=== PATIENT | female | born 1955 | race Caucasian/White ===

== ENCOUNTER 2017-06-17 18:17 | Observation (INO) | payer OTHER ==
[~2017-06-17] VITALS: Ht 157.5 cm; Wt 49.0 kg
[2017-06-17 18:26] VITALS: BP 137/81; PULSE 94; RESP 16; TEMP 98.1; O2SAT 99
[2017-06-17] MEDS ORDERED: AMBI10TA PO (18:43)
[2017-06-17] MEDS ORDERED: AMPH1TAB47 PO (18:43)
[2017-06-17] MEDS ORDERED: MIRT45TA PO (18:43)
[2017-06-17] MEDS ORDERED: CLOR3.755 PO (18:43)
[2017-06-17] MEDS ORDERED: SODIUM CHLORIDE 0.9% FLUSH 10 ML FLUSH IVF PRN (18:45)
[2017-06-17] MEDS ORDERED: ASPIRIN 81 MG CHEW TAB PO ONE (18:45)
--- NOTE | 2017-06-17 18:51 | PD ---
HPI Chief Complaint: Musculoskeletal Complaint Time Seen by Provider: 18:30 Travel History International Travel<30 days: No Contact w/Intl Traveler<30days: No Traveled to known affect area: No History of Present Illness HPI 62-year-old female with history of fibromyalgia, anxiety, previous [place], presents to the emergency department today for evaluation of a pain in her left shoulder blade that wraps around to the front that has been occurring intermittently over the last 4-5 days. She states it first came on while she was lying down doing nothing. It causes her to be short of breath and sensation of lightheadedness. She states since then she does not have to be doing anything or she can be something when it happened. She has no nausea or vomiting. No diaphoresis. She just feels lightheaded and short of breath. She does not recall any injury. She not recall any alleviating or exacerbating factors. She has no other symptoms to report. PFSH Past Medical History Anxiety: Yes Depression: Yes Diminished Hearing: No Fibromyalgia: Yes Tetanus Vaccination: < 5 Years Influenza Vaccination: No ?: Not Past Surgical History Appendectomy: Yes (WITH REMOVAL OF OVARY AND FALLOPIAN TUBE) Social History Alcohol Use: No Tobacco Use: Yes (5 CIGS DAY) Substance Use: No Allergies-Medications (Allergen,Severity, Reaction): Coded Allergies: No Known Allergies (Unverified , 06/17/17) Reported Meds & Prescriptions Reported Meds & Active Scripts Active Reported Ambien (Zolpidem Tartrate) 10 Mg Tab 10 Mg PO HS PRN Mirtazapine 45 Mg Tab 45 Mg PO HS Amphetamine-Dextroamphetamine 15 Mg Tab 15 Mg PO BID Avoid late evening doses. Space doses at least 4 to 6 hours if more than once/day dosing. Clorazepate (Clorazepate Dipotassium) 3.75 Mg Tab 3.75 Mg PO TID PRN Review of Systems Except as stated in HPI: all other systems reviewed are Neg Physical Exam Narrative GENERAL: Well-nourished female patient, with bizarre affect, but in no acute distress. SKIN: Focused skin assessment warm/dry. HEAD: Atraumatic. Normocephalic. EYES: Pupils equal and round. No scleral icterus. No injection or drainage. ENT: No nasal bleeding or discharge. Mucous membranes pink and moist. NECK: Trachea midline. No JVD. CARDIOVASCULAR: Regular rate and rhythm. No murmur appreciated. RESPIRATORY: No accessory muscle use. Clear to auscultation. Breath sounds equal bilaterally. GASTROINTESTINAL: Abdomen soft, non-tender, nondistended. Hepatic and splenic margins not palpable. MUSCULOSKELETAL: No obvious deformities. No clubbing. No cyanosis. No edema. He has no limitation in range of motion of the left shoulder. No crepitus to palpation. No tenderness to palpation. Equal english composition instructor strength bilateral upper extremities. NEUROLOGICAL: Awake and alert. No obvious cranial nerve deficits. Motor grossly within normal limits. Normal speech. PSYCHIATRIC: Appropriate mood and affect; insight and judgment normal. Data Data Last Documented VS Vital Signs Date Time Temp Pulse Resp B/P (MAP) Pulse Ox O2 Delivery O2 Flow Rate FiO2 06/17/17 19:11 140/85 (103) 135/82 (99) 06/17/17 19:09 80 18 99 06/17/17 19:09 Nasal Cannula 06/17/17 18:26 98.1 Orders Orders Electrocardiogram (06/17/17 18:35) Basic Metabolic Panel (Bmp) (06/17/17 18:35) Ckmb (Isoenzyme) Profile (06/17/17 18:35) Complete Blood Count With Diff (06/17/17 18:35) Magnesium (Mg) (06/17/17 18:35) Prothrombin Time / Inr (Pt) (06/17/17 18:35) Act Partial Throm Time (Ptt) (06/17/17 18:35) Troponin I (06/17/17 18:35) Lipase (06/17/17 18:35) Chest, Single Ap (06/17/17 18:35) Ecg Monitoring (06/17/17 18:35) Bilateral Bp Monitoring (06/17/17 18:35) Iv Access Insert/Monitor (06/17/17 18:35) Oximetry (06/17/17 18:35) Oxygen Administration (06/17/17 18:35) Aspirin Chew (Aspirin Chew) (06/17/17 18:45) Sodium Chloride 0.9% Flush (Ns Flush) (06/17/17 18:45) CKMB (06/17/17 18:48) CKMB% (06/17/17 18:48) Potassium Chloride (Kcl) (06/17/17 19:45) Sodium Chlor 0.9% 1000 Ml Inj (Ns 1000 M (06/17/17 19:45) Labs Laboratory Tests Test 06/17/17 18:48 White Blood Count 9.0 TH/MM3 Red Blood Count 4.26 MIL/MM3 Hemoglobin 12.8 GM/DL Hematocrit 38.4 % Mean Corpuscular Volume 90.1 FL Mean Corpuscular Hemoglobin 30.0 PG Mean Corpuscular Hemoglobin Concent 33.3 % Red Cell Distribution Width 12.9 % Platelet Count 222 TH/MM3 Mean Platelet Volume 8.8 FL Neutrophils (%) (Auto) 46.4 % Lymphocytes (%) (Auto) 45.1 % Monocytes (%) (Auto) 6.8 % Eosinophils (%) (Auto) 1.2 % Basophils (%) (Auto) 0.5 % Neutrophils # (Auto) 4.3 TH/MM3 Lymphocytes # (Auto) 4.0 TH/MM3 Monocytes # (Auto) 0.6 TH/MM3 Eosinophils # (Auto) 0.1 TH/MM3 Basophils # (Auto) 0.0 TH/MM3 CBC Comment DIFF FINAL Differential Comment Prothrombin Time 11.2 SEC Prothromb Time International Ratio 1.0 RATIO Activated Partial Thromboplast Time 29.0 SEC Blood Urea Nitrogen 17 MG/DL Creatinine 0.75 MG/DL Random Glucose 81 MG/DL Calcium Level 8.8 MG/DL Magnesium Level 2.3 MG/DL Sodium Level 140 MEQ/L Potassium Level 3.3 MEQ/L Chloride Level 108 MEQ/L Carbon Dioxide Level 25.9 MEQ/L Anion Gap 6 MEQ/L Estimat Glomerular Filtration Rate 79 ML/MIN Total Creatine Kinase 439 U/L Creatine Kinase MB 2.9 NG/ML Creatine Kinase MB % 0.7 % Troponin I LESS THAN 0.02 NG/ML Lipase 122 U/L MDM Medical Decision Making Medical Screen Exam Complete: Yes Emergency Medical Condition: Yes Medical Record Reviewed: Yes Differential Diagnosis ACS versus pleuritic pain versus atypical chest pain versus musculoskeletal pain Narrative Course 62-year-old female presents to emergency department for evaluation of a left shoulder pain. With no new injury and patient describes associated symptoms, testing workup is initiated. This is essentially negative. I discussed the patient my attending who agrees it is in her best interest to be observed in the chest pain center. A call has been placed to [facility] for this observation admission. Plan is discussed with patient who is in agreement with this plan of care. Diagnosis Primary Impression: Atypical chest pain Admitting Information Admitting Physician Requests: Observation Condition: Stable Magaly Castano Jun 17, 2017 18:51
[2017-06-17 19:01] LABS: AUTOMATED NEUTROPHIL # 4.3 TH/MM3 (1.8-7.7); BASOPHIL % 0.5 % (0.0-2.0); EOSINOPHIL # 0.1 TH/MM3 (0-0.4); EOSINOPHIL % 1.2 % (0.0-4.0); HEMATOCRIT 38.4 % (35.0-46.0); HEMO FLAGS DIFF FINAL; LYMPH % 45.1 % (9.0-44.0); MEAN CELL VOLUME 90.1 FL (80.0-100.0); MEAN CORPUSCULAR HGB CONC 33.3 % (32.0-36.0); MONO % 6.8 % (0.0-8.0); NEUT % 46.4 % (16.0-70.0); PLATELET COUNT 222 TH/MM3 (150-450); RED BLOOD COUNT 4.26 MIL/MM3 (4.00-5.30); RED CELL DISTRIBUTION WIDTH 12.9 % (11.6-17.2)
[2017-06-17 19:09] VITALS: BP 142/85; PULSE 80; RESP 18; O2SAT 98; O2SAT 99
[2017-06-17 19:11] VITALS: BP_SYST 135; BP_SYST 140; BP_DIAS 82; BP_DIAS 85
[2017-06-17 19:19] LABS: CHLORIDE 108 MEQ/L (98-107); POTASSIUM 3.3 MEQ/L (3.5-5.1); SODIUM (NA) 140 MEQ/L (136-145)
[2017-06-17 19:22] LABS: ANION GAP 6 MEQ/L (5-15); BICARBONATE 25.9 MEQ/L (21.0-32.0); BLOOD UREA NITROGEN 17 MG/DL (7-18); MAGNESIUM 2.3 MG/DL (1.5-2.5)
--- NOTE | 2017-06-17 19:23 | RADRPT ---
EXAM DATE/TIME: 06/17/2017 18:54 [facility] COMPARISON: No previous studies available for comparison. INDICATIONS : Left posterior upper chest pain MEDICAL HISTORY : Fungal lung infection SURGICAL HISTORY : None. ENCOUNTER: Initial ACUITY: 4 - 6 days PAIN SCORE: 9/10 LOCATION: Bilateral chest FINDINGS: A single view of the chest demonstrates the lungs to be symmetrically aerated without evidence of mas s, infiltrate or effusion. The cardiomediastinal contours are unremarkable. Mild to moderate S-shaped thoracolumbar scoliosis noted. CONCLUSION: No evidence of acute cardiopulmonary disease. Scoliosis. Octavio Gutiérrez MD on June 17, 2017 at 19:20 Board Certified Radiologist. This report was verified electronically.
[2017-06-17 19:24] LABS: PROTHROMBIN TIME - PATIENT 11.2 SEC (9.8-11.6)
[2017-06-17 19:25] LABS: GLOMERULAR FILTRATION RATE 79 ML/MIN (>89)
[2017-06-17 19:29] LABS: CREATINE KINASE 439 U/L (26-192)
[2017-06-17 19:41] LABS: CKMB 2.9 NG/ML (0.5-3.6)
[2017-06-17] MEDS ORDERED: POTASSIUM CHLORIDE 10 MEQ CONTROLLED RELEASE TAB PO ONE (19:45)
[2017-06-17] MEDS ORDERED: SODIUM CHLOR 0.9% 1000 ML INJ 1,000 ML IV ONE (19:45)
[2017-06-17 19:52] VITALS: BP 113/68; PULSE 83; RESP 18; TEMP 98.2; O2SAT 97
[2017-06-17] MEDS ORDERED: ACETAMINOPHEN 500 MG CPLT PO PRN (20:15)
[2017-06-17] MEDS ORDERED: SODIUM CHLORIDE 0.9% FLUSH 10 ML FLUSH IV FLUSH PRN (20:15)
[2017-06-17] MEDS ORDERED: ONDANSETRON HCL 4 MG/2 ML VIAL IV PUSH PRN (20:15)
[2017-06-17] MEDS ORDERED: NITROGLYCERIN 0.4 MG SL 25 TABS/BTL SL PRN (20:15)
[2017-06-17] MEDS ORDERED: SODIUM CHLORIDE 0.9% FLUSH 10 ML FLUSH IV FLUSH SCH (21:00)
--- NOTE | 2017-06-18 18:47 | EKG ---
Date Performed: 06/17/2017 Time Performed: 19:10:49 PTAGE: 62 years EKG: Sinus rhythm NORMAL ECG NO PREVIOUS TRACING DOCTOR: Jojo Davies Interpretating Date/Time 06/18/2017 18:46:37
== END 2017-06-17 22:00 | disposition left against medical advice (07) ==
LOC: PHED 18:17 → PHEDA 20:03 → PH3B 21:15
PROVIDERS: ADMIT Hospitalist; ATTEND Hospitalist
DX: R07.89 Other chest pain (principal); M25.512 Pain in left shoulder; R06.02 Shortness of breath; R42 Dizziness and giddiness; M79.7 Fibromyalgia; M41.9 Scoliosis, unspecified; I25.2 Old myocardial infarction; F41.9 Anxiety disorder, unspecified; F32.9 Major depressive disorder, single episode, unspecified; F17.210 Nicotine dependence, cigarettes, uncomplicated; Z79.899 Other long term (current) drug therapy
CPT/HCPCS: 71010; 80048; 82550; 82552; 83690; 83735; 84484; 85025; 85610; 85730; 93005; 96360; 99285; G0378; J7030

== ENCOUNTER 2017-06-29 12:54 | Emergency (ER) | payer OTHER ==
[~2017-06-29 12:54] MED LIST: AMBI10TA PO; AMPH1TAB47 PO; CLOR3.755 PO; MIRT45TA PO
[2017-06-29 13:05] VITALS: BP 135/92; PULSE 97; RESP 18; TEMP 98; O2SAT 97
[2017-06-29 15:46] LABS: AUTOMATED NEUTROPHIL # 4.8 TH/MM3 (1.8-7.7); BASOPHIL % 0.5 % (0.0-2.0); EOSINOPHIL # 0.1 TH/MM3 (0-0.4); EOSINOPHIL % 0.7 % (0.0-4.0); HEMATOCRIT 41.1 % (35.0-46.0); HEMOGLOBIN 13.6 GM/DL (11.6-15.3); LYMPHOCYTE # 2.3 TH/MM3 (1.0-4.8); MEAN CELL VOLUME 91.2 FL (80.0-100.0); MEAN CORPUSCULAR HEMOGLOBIN 30.3 PG (27.0-34.0); MEAN CORPUSCULAR HGB CONC 33.2 % (32.0-36.0); MEAN PLATELET VOLUME 10.1 FL (7.0-11.0); MONO % 6.8 % (0.0-8.0); MONOCYTE # 0.5 TH/MM3 (0-0.9); PLATELET COUNT 244 TH/MM3 (150-450); RED BLOOD COUNT 4.51 MIL/MM3 (4.00-5.30); RED CELL DISTRIBUTION WIDTH 14.3 % (11.6-17.2); WHITE BLOOD COUNT 7.7 TH/MM3 (4.0-11.0)
[2017-06-29 16:02] LABS: AST (GOT) 20 U/L (15-37); BICARBONATE 27.1 MEQ/L (21.0-32.0); BLOOD UREA NITROGEN 14 MG/DL (7-18); CALCIUM 9.6 MG/DL (8.5-10.1); CHLORIDE 108 MEQ/L (98-107); CREATININE 0.88 MG/DL (0.50-1.00); GLOMERULAR FILTRATION RATE 66 ML/MIN (>89); GLUCOSE,RANDOM 102 MG/DL (74-106); SODIUM (NA) 140 MEQ/L (136-145)
[2017-06-29 16:05] LABS: ALKALINE PHOSPHATASE 89 U/L (45-117); ALT (GPT) 19 U/L (10-53); TOTAL BILIRUBIN ADULT 0.2 MG/DL (0.2-1.0)
[2017-06-29 16:07] LABS: BILIRUBIN, URINE NEG (NEG); BLOOD, URINE NEG (NEG); GLUCOSE,URINE NEG (NEG); HYALINE CAST, URINE 9 /lpf (RARE); KETONE, URINE NEG (NEG); MUCUS URINE MANY /lpf (OCC); NITRITE,URINE NEG (NEG); PH, URINE 5.5 (5.0-8.5); SQUAMOUS EPITHELIAL CELL URINE <1 /hpf (0-5); URINE COLOR YELLOW (YELLW/STRAW); URINE LEUKOCYTE ESTERASE NEG (NEG)
--- NOTE | 2017-06-29 16:26 | PD ---
HPI Chief Complaint: Psychiatric Symptoms Time Seen by Provider: 14:40 Travel History International Travel<30 days: No Contact w/Intl Traveler<30days: No History of Present Illness HPI 62-year-old female presents to emergency department as a Khan act was suicidal ideations. Patient states that she was on the phone with the bank and became frustrated and said "I'm just going to go myself". The police department and then went to her house and Khan acted her with suicidal ideations. Patient denies any suicidal or homicidal ideations. Denies illicit drug use. Denies hallucinations. Denies fever, chills, chest pain, shortness of breath. States she has a history of anxiety and depression takes her medication as recommended. [facility] Past Medical History Anxiety: Yes Depression: Yes Diminished Hearing: No Fibromyalgia: Yes Integumentary: Yes (DISSEMINATED FUNGAL INFECTION ) Tetanus Vaccination: < 5 Years Influenza Vaccination: No Menopausal: Yes Tubal Ligation: Yes Past Surgical History Appendectomy: Yes (WITH REMOVAL OF OVARY AND FALLOPIAN TUBE) Social History Alcohol Use: No Tobacco Use: Yes (5 CIGS DAY) Substance Use: Yes Allergies-Medications (Allergen,Severity, Reaction): Coded Allergies: No Known Allergies (Unverified , 06/17/17) Reported Meds & Prescriptions Reported Meds & Active Scripts Active Reported Ambien (Zolpidem Tartrate) 10 Mg Tab 10 Mg PO HS PRN Mirtazapine 45 Mg Tab 45 Mg PO HS Amphetamine-Dextroamphetamine 15 Mg Tab 15 Mg PO BID Avoid late evening doses. Space doses at least 4 to 6 hours if more than once/day dosing. Clorazepate (Clorazepate Dipotassium) 3.75 Mg Tab 3.75 Mg PO TID PRN Review of Systems Except as stated in HPI: all other systems reviewed are Neg Physical Exam Narrative GENERAL: Well-nourished, well-developed patient. SKIN: Focused skin assessment warm/dry. HEAD: Normocephalic. EYES: No scleral icterus. No injection or drainage. NECK: Supple, trachea midline. No JVD or lymphadenopathy. CARDIOVASCULAR: Regular rate and rhythm without murmurs, gallops, or rubs. RESPIRATORY: Breath sounds equal bilaterally. No accessory muscle use. GASTROINTESTINAL: Abdomen soft, non-tender, nondistended. MUSCULOSKELETAL: No cyanosis, or edema. BACK: Nontender without obvious deformity. No CVA tenderness. PSYCHIATRIC: No delusional thought processes. No hallucinations. Data Data Last Documented VS Vital Signs Date Time Temp Pulse Resp B/P (MAP) Pulse Ox O2 Delivery O2 Flow Rate FiO2 06/29/17 18:47 06/29/17 13:05 98.0 97 18 97 Room Air Orders Orders Complete Blood Count With Diff (06/29/17 14:55) Comprehensive Metabolic Panel (06/29/17 14:55) Urinalysis - C+S If Indicated (06/29/17 14:55) Psych Screen (06/29/17 14:55) Drug Screen, Random Urine (06/29/17 14:55) Ed Discharge Order (06/29/17 16:43) Labs Laboratory Tests Test 06/29/17 14:45 White Blood Count 7.7 TH/MM3 Red Blood Count 4.51 MIL/MM3 Hemoglobin 13.6 GM/DL Hematocrit 41.1 % Mean Corpuscular Volume 91.2 FL Mean Corpuscular Hemoglobin 30.3 PG Mean Corpuscular Hemoglobin Concent 33.2 % Red Cell Distribution Width 14.3 % Platelet Count 244 TH/MM3 Mean Platelet Volume 10.1 FL Neutrophils (%) (Auto) 62.0 % Lymphocytes (%) (Auto) 30.0 % Monocytes (%) (Auto) 6.8 % Eosinophils (%) (Auto) 0.7 % Basophils (%) (Auto) 0.5 % Neutrophils # (Auto) 4.8 TH/MM3 Lymphocytes # (Auto) 2.3 TH/MM3 Monocytes # (Auto) 0.5 TH/MM3 Eosinophils # (Auto) 0.1 TH/MM3 Basophils # (Auto) 0.0 TH/MM3 CBC Comment DIFF FINAL Differential Comment Urine Color YELLOW Urine Turbidity CLEAR Urine pH 5.5 Urine Specific [place] 1.016 Urine Protein NEG mg/dL Urine Glucose (UA) NEG mg/dL Urine Ketones NEG mg/dL Urine Occult Blood NEG Urine Nitrite NEG Urine Bilirubin NEG Urine Urobilinogen LESS THAN 2.0 MG/DL Urine Leukocyte Esterase NEG Urine WBC 1 /hpf Urine Squamous Epithelial Cells <1 /hpf Urine Hyaline Casts 9 /lpf Urine Mucus MANY /lpf Microscopic Urinalysis Comment CULT NOT INDICATED Blood Urea Nitrogen 14 MG/DL Creatinine 0.88 MG/DL Random Glucose 102 MG/DL Total Protein 8.0 GM/DL Albumin 4.0 GM/DL Calcium Level 9.6 MG/DL Alkaline Phosphatase 89 U/L Aspartate Amino Transf (AST/SGOT) 20 U/L Alanine Aminotransferase (ALT/SGPT) 19 U/L Total Bilirubin 0.2 MG/DL Sodium Level 140 MEQ/L Potassium Level 4.1 MEQ/L Chloride Level 108 MEQ/L Carbon Dioxide Level 27.1 MEQ/L Anion Gap 5 MEQ/L Estimat Glomerular Filtration Rate 66 ML/MIN Urine Opiates Screen NEG Urine Barbiturates Screen NEG Urine Amphetamines Screen POS Urine Benzodiazepines Screen POS Urine Cocaine Screen NEG Urine Cannabinoids Screen POS MDM Medical Decision Making Medical Screen Exam Complete: Yes Emergency Medical Condition: Yes Differential Diagnosis Suicidal ideations, depression, anxiety Narrative Course 62-year-old female presents to emergency department as a Khan act was suicidal ideations. Patient states that she was on the phone with the bank and became frustrated and said "I'm just going to kill myself". The police department and then went to her house and Khan acted her with suicidal ideations. Patient denies any suicidal or homicidal ideations. Denies illicit drug use. Denies hallucinations. Denies fever, chills, chest pain, shortness of breath. States she has a history of anxiety and depression takes her medication as recommended. Vital signs stable Physical exam findings unremarkable. Patient was evaluated by JULIO Napoles and Khan acted lifted. Patient adamantly denies suicidal or homicidal ideations. Patient will be discharged home and advised follow up primary care physician as scheduled. Return to the ED worsening or persistent symptoms. Referrals: Primary Care Physician Additional Instructions: Follow up with your primary care physician within 2-3 days. If your symptoms persist or worsen, return to the emergency department. Disposition: 01 DISCHARGE HOME Condition: Stable Nuvia Omalley Jun 29, 2017 16:26
--- NOTE | 2017-06-29 16:29 | PD ---
History of Present Illness Chief Complaint: Psychiatric Symptoms Time Seen by Provider: 16:00 Travel History International Travel<30 Days: No Contact w/Intl Traveler<30days: No Known affected area: No Legal Status Legal Status: Khan Act Khan Act Signed By: Una Steele History of Present Illness: History of Present Illness HPI 18 year old white female with history of PTSD, generalized anxiety disorder, who presents to the emergency department under a Khan act initiated by [place] [employer]. The Khan act report alleges that the patient made statements on the phone with Chuck Cervantes that she wanted to know the ways to kill herself because she is ready to . The patient did not make any attempt at harming herself. Patient states that she was on the telephone over an extended period of time trying to resolve some issues with her checking account. After having been on hold for some time she tells me that she became frustrated and made a statement to the effect" I might as well just kill myself ". She denies that this was a suicidal thought or that she had any suicidal ideation but rather that she was frustrated. She also tells me that when the police got to her home she was involved in her usual routine which includes taking care of her birds. Electronic medical record is reviewed. No previous contact with [facility] psychiatry. Current toxicology is positive for amphetamines and benzos which are prescribed. Positive for cannabinoids. The patient is seen in [facility]. She is alert, oriented female dressed in [facility]. She exhibits adequate hygiene. Her speech is clear, logical , goal-directed. There is no evidence of any hallucinations, no delusions and no paranoia. Her affect is full and variable. No significant objective clinical symptoms of anxiety or depression at this time. She denies any suicidal or homicidal ideation intent or plan. Patient receives psychiatric treatment from [facility] doctor's and has an appointment scheduled on Sunday. She reports medication compliance with her prescribed medications including Remeron, Cymbalta, Tranxene, Adderall.. PFSH Past Medical History Anxiety: Yes Depression: Yes Diminished Hearing: No Fibromyalgia: Yes Integumentary: Yes (DISSEMINATED FUNGAL INFECTION ) Tetanus Vaccination: < 5 Years Influenza Vaccination: No Menopausal: Yes Tubal Ligation: Yes Past Surgical History Appendectomy: Yes (WITH REMOVAL OF OVARY AND FALLOPIAN TUBE) Psychiatric History Psychiatric History Hx Psychiatric Treatment: 1 previous psychiatric hospitalization in 2009 while she was living in [place]. No history of previous suicide attempt. Has outpatient psychiatric care by [place] doctor's. History of Inpatient Treatment: Yes Guns or firearms in home: No Social History Born and raised in [place]. In [place] for the past 40 years. Patient completed high school. Currently on disability. and 3. Currently lives with her boyfriend. Hx Alcohol Use: No Hx Tobacco Use: Yes (5 CIGS DAY) Hx Substance Use: Yes Substance Use Type: Marijuana Other Substances Used: nightly Hx of Substance Use Treatment: No Family Psychiatric History Negative Allergies-Medications (Allergen,Severity, Reaction): Coded Allergies: No Known Allergies (Unverified , 06/17/17) Reported Meds & Prescriptions Reported Meds & Active Scripts Active Reported Ambien (Zolpidem Tartrate) 10 Mg Tab 10 Mg PO HS PRN Mirtazapine 45 Mg Tab 45 Mg PO HS Amphetamine-Dextroamphetamine 15 Mg Tab 15 Mg PO BID Avoid late evening doses. Space doses at least 4 to 6 hours if more than once/day dosing. Clorazepate (Clorazepate Dipotassium) 3.75 Mg Tab 3.75 Mg PO TID PRN Review of Systems Musculoskeletal: COMPLAINS OF: Joint pain, Muscle aches Mental Status Examination Appearance: Appropriate Consciousness: Alert Orientation: x4 Motor Activity: Normal gait Speech: Unremarkable Language: Adequate Fund of Knowledge: Adequate Attention and Concentration: Adequate Memory: Unremarkable Mood: Appropriate Affect: Appropriate Thought Process & Associations: Intact Thought Content: Appropriate Hallucination Type: None Delusion Type: None Suicidal Ideation: No Suicidal Plan: No Suicidal Intention: No Homicidal Ideation: No Homicidal Plan: No Homicidal Intention: No Insight: Adequate Judgment: Adequate MDM Medical Decision Making Medical Record Reviewed: Yes Assessment/Plan 62-year-old female with history of PTSD and generalized anxiety disorder who while in context of trying to resolve some issues with her checking account with [employer] made a statement of concern to the person on the telephone. Since that mergers and acquisitions banker called the police who placed her under the Khan act. The patient admits that she made a statement but states that it was out of frustration and that she did not have any intention of harming herself. The patient is currently in outpatient psychiatric treatment and reports she is compliant with her medication. She has an appointment on Sunday and is looking forward to beginning counseling services as well. At this time the patient does not present any unstable mental illness as defined under the Khan act. She does not meet criteria to remain under the Khan act and therefore it will be lifted. Psychiatrically clear for discharge. Orders Orders Complete Blood Count With Diff (06/29/17 14:55) Comprehensive Metabolic Panel (06/29/17 14:55) Urinalysis - C+S If Indicated (06/29/17 14:55) Psych Screen (06/29/17 14:55) Drug Screen, Random Urine (06/29/17 14:55) Results Vital Signs Date Time Temp Pulse Resp B/P (MAP) Pulse Ox O2 Delivery O2 Flow Rate FiO2 06/29/17 13:05 98.0 97 18 135/92 (106) 97 Room Air Laboratory Tests Test 06/29/17 14:45 White Blood Count 7.7 Red Blood Count 4.51 Hemoglobin 13.6 Hematocrit 41.1 Mean Corpuscular Volume 91.2 Mean Corpuscular Hemoglobin 30.3 Mean Corpuscular Hemoglobin Concent 33.2 Red Cell Distribution Width 14.3 Platelet Count 244 Mean Platelet Volume 10.1 Neutrophils (%) (Auto) 62.0 Lymphocytes (%) (Auto) 30.0 Monocytes (%) (Auto) 6.8 Eosinophils (%) (Auto) 0.7 Basophils (%) (Auto) 0.5 Neutrophils # (Auto) 4.8 Lymphocytes # (Auto) 2.3 Monocytes # (Auto) 0.5 Eosinophils # (Auto) 0.1 Basophils # (Auto) 0.0 CBC Comment DIFF FINAL Differential Comment Urine Color YELLOW Urine Turbidity CLEAR Urine pH 5.5 Urine Specific [place] 1.016 Urine Protein NEG Urine Glucose (UA) NEG Urine Ketones NEG Urine Occult Blood NEG Urine Nitrite NEG Urine Bilirubin NEG Urine Urobilinogen LESS THAN 2.0 Urine Leukocyte Esterase NEG Urine WBC 1 Urine Squamous Epithelial Cells <1 Urine Hyaline Casts 9 Urine Mucus MANY Microscopic Urinalysis Comment CULT NOT INDICATED Blood Urea Nitrogen 14 Creatinine 0.88 Random Glucose 102 Total Protein 8.0 Albumin 4.0 Calcium Level 9.6 Alkaline Phosphatase 89 Aspartate Amino Transf (AST/SGOT) 20 Alanine Aminotransferase (ALT/SGPT) 19 Total Bilirubin 0.2 Sodium Level 140 Potassium Level 4.1 Chloride Level 108 Carbon Dioxide Level 27.1 Anion Gap 5 Estimat Glomerular Filtration Rate 66 Urine Opiates Screen NEG Urine Barbiturates Screen NEG Urine Amphetamines Screen POS Urine Benzodiazepines Screen POS Urine Cocaine Screen NEG Urine Cannabinoids Screen POS Diagnosis Primary Impression: PTSD (post-traumatic stress disorder) Additional Impression: Generalized anxiety disorder Psychiatrically Cleared: Yes Additional Instructions: Follow up with [facility] Doctors. Med/ Other Pt Specific Info: No Change to Meds Disposition: 01 DISCHARGE HOME Condition: Stable Problem Qualifiers Selina Almendarez Jun 29, 2017 16:29
== END 2017-06-29 18:50 | disposition home or self-care (01) ==
LOC: NEDAMB 12:54 → NEPJ 18:50
DX: F43.10 Post-traumatic stress disorder, unspecified (principal); F41.1 Generalized anxiety disorder; F32.9 Major depressive disorder, single episode, unspecified; M79.7 Fibromyalgia; F17.210 Nicotine dependence, cigarettes, uncomplicated; Z79.899 Other long term (current) drug therapy
CPT/HCPCS: 80053; 80307; 81001; 85025; 99283